=== PATIENT | male | born 1980 | race Caucasian/White ===

== ENCOUNTER 2016-09-19 06:04 | Emergency (ER) | payer OTHER | END 2016-09-19 07:00 | disposition home or self-care (01) | LOC: ER1 06:04 | DX: S61.531A Puncture wound without foreign body of right wrist, initial encounter (principal); W26.8XXA Contact with other sharp object(s), not elsewhere classified, initial encounter | CPT/HCPCS: 80074; 86706; 90471; 90715; 99283 ==

== ENCOUNTER → 2016-11-21 | Outpatient (CLI) | payer OTHER | LOC: LAB 05:53 | DX: Z02.1 Encounter for pre-employment examination (principal) | CPT/HCPCS: 87390 ==